=== PATIENT | male | born 1940 | race Caucasian/White ===

== ENCOUNTER 2021-06-22 15:19 | Emergency (ER) | payer OTHER, MEDICARE ==
[~2021-06-22] VITALS: Ht 172.7 cm; Wt 68.0 kg
--- NOTE | ~2021-06-22 | EMS ---
[address] [address] EMS Patient Care Report Name: ESTHELA CAMPBELL Room #: DEP FLAQUITA Yao#: [id number] Admission: 06/22/21 Attend Phys: Discharge: 06/22/21 Date of : 42 Report #: [id number] THIS REPORT FOR: //name// Report Transmitted: 06/22/2021 18:50 EMS Care Summary [facility] MED-ACT Incident [id number] @ 06/22/2021 14:40 Incident Location [address] [place] [address] Patient ESTHELA CAMPBELL Male, 81 Years 1940 Patient Address [address] [place] [address] Patient History Back Pain (Chronic), Patient Allergies No known allergies, Patient Medications None Reported, Chief Complaint weakness Disposition Transported No Lights/[place] Dispatch Reason Falls Transported To [facility] Narrative Arrived to find pt sitting on a stool alert and oriented. Pt stated he tripped and fell while he was getting out of his chair and fell onto a carpeted [address] [address] EMS Patient Care Report Name: ESTHELA CAMPBELL Room #: [facility] M.Ashley.#: [id number] Admission: 06/22/21 Attend Phys: Discharge: 06/22/21 Date of : 42 Report #: [id number] surface. Pt complained of lower back pain and generalized weakness. Pt stated the weakness started after he fell sometime this morning. Pt stated he is having difficulty getting around his apartment due to his weakness. Pt stated he has chronic lower back pain but that the pain is worse since the fall. Pt was assisted to the cot and placed in the position of comfort and transported to [facility] without change. Upon arrival pt was taken to 2 and care transferred to staffing and scheduling coordinator with report. Initial Vitals @15:04P: 86, @15:00P: 92,SpO2: 97, @15:06P: 85,SpO2: 73, @15:12P: 85,R: 18,BP: 138/87,GCS: 15,SpO2: 94,Revised Trauma: 12, @14:49P: 87,R: 18,BP: 171/102,Pain: 4/10,GCS: 15,Temp: 98.4F,SpO2: 98,Revised Trauma: 12, Impression Generalized Weakness Procedures @15:0412-Lead ECG Timeline 14:37,Call Received 14:37,Psap Call 14:40,Dispatched 14:40,En Route 14:47,On Scene 14:47,At Patient 14:49,BP: 171/102 M,PULSE: 87,RR: 18 R,SPO2: 98 Ox,ETCO2: ,BG: ,PAIN: 4,GCS: 15, 14:59,Depart Scene 15:00,BP: / M,PULSE: 92,RR: R,SPO2: 97 Ox,ETCO2: ,BG: ,PAIN: ,GCS: , 15:04,12-Lead ECG, 15:04,BP: / M,PULSE: 86,RR: R,SPO2: Ox,ETCO2: ,BG: ,PAIN: ,GCS: , 15:06,BP: / M,PULSE: 85,RR: R,SPO2: 73 Ox,ETCO2: ,BG: ,PAIN: ,GCS: , 15:12,BP: 138/87 M,PULSE: 85,RR: 18 R,SPO2: 94 Ox,ETCO2: ,BG: ,PAIN: ,GCS: 15, 15:15,At Destination 15:32,Call Closed Disclaimer v1.1 Copyright 2020 [employer] This EMS Care Summary contains data elements from the applicable legal record (which may be displayed differently). It is designed to provide pertinent information for the following purposes: continuity of care, clinical quality, [address] [address] EMS Patient Care Report Name: HUGHTINESTHELA Room #: DEP FLAQUITA Yao#: [id number] Admission: 06/22/21 Attend Phys: Discharge: 06/22/21 Date of : 42 Report #: [id number] and state data reporting. The complete legal record is available to ED staff and administrators of the receiving hospital in [employer]'s Patient Tracker. All data is provided "as is."
[2021-06-22 16:09] LABS: ABSOLUTE NEUTROPHILS 7.9 thou/uL (1.4-8.2); BASOPHILS 1.3 % (0.0-2.0); EOSINOPHILS 0.5 % (0.0-3.0); HEMATOCRIT 41.1 % (42.0-52.0); HEMOGLOBIN 13.8 gm/dL (14.0-18.0); LYMPHOCYTES 11.3 % (24.0-44.0); MCH 30.7 pg (26.0-34.0); MCHC 33.6 g/dL (28.0-37.0); MCV 91.5 fL (80.0-100.0); MONOCYTES 4.5 % (1.0-8.0); PLATELET COUNT 207 thou/uL (150-400); POLYS 82.4 % (36.0-66.0); RBC 4.49 mil/uL (4.50-6.00); RDW 13.5 % (10.5-14.5); WBC 9.6 thou/uL (4.0-11.0)
[2021-06-22 16:16] LABS: CALCIUM 9.3 mg/dL (8.5-10.1); CREATININE 0.9 mg/dL (0.7-1.3); POTASSIUM 3.9 mmol/L (3.5-5.1)
[2021-06-22 16:26] LABS: ALBUMIN 3.7 g/dL (3.4-5.0); TOTAL BILIRUBIN 0.6 mg/dL (0.2-1.0); TOTAL PROTEIN 7.3 g/dL (6.4-8.2)
[2021-06-22 17:57] VITALS: BP 154/74
--- NOTE | 2021-06-23 07:30 | EKG ---
[address] [place] [place] [address] ELECTROCARDIOGRAM REPORT Name: ESTHELA CAMPBELL Room #: DEP FLAQUITA Yao#: [id number] Admission: 06/22/21 Attend Phys: Discharge: 06/22/21 Date of : 42 Report #: [id number] [facility] ED Test Date: 2021-06-22 Test Time: 15:53:40 Pat Name: ESTHELA CAMPBELL Department: Patient ID: [id number]- Room: Gender: M Field Director: : 1940 Requested By: Connor Vásquez Order Number: [id number] MD: Tino Jose Measurements Intervals [place] Rate: 78 P: 68 MO: 164 QRS: 56 QRSD: 100 T: 70 QT: 407 QTc: 464 Interpretive Statements Sinus rhythm No significant abnormality No previous ECG available for comparison Electronically Signed On 06-23-2021 7:30:31 CDT by Tino Jose [email or web address] <ELECTRONICALLY SIGNED> By: Tino Jose MD, [facility] 06/23/21 0730 1553 1553 Tino Jose MD, FACC /EPI
== END 2021-06-22 17:58 | disposition home or self-care (01) ==
LOC: ER 15:19
PROVIDERS: Emergency Medicine
DX: M54.6 Pain in thoracic spine (principal); G89.29 Other chronic pain; R53.1 Weakness; F17.210 Nicotine dependence, cigarettes, uncomplicated